=== PATIENT | female | born 1980 | race Caucasian/White ===

== ENCOUNTER 2019-05-03 22:40 | Emergency (ER) | payer OTHER ==
[~2019-05-03] VITALS: Ht 177.8 cm; Wt 74.8 kg
[2019-05-03 22:42] VITALS: Ht 177.8 cm; Wt 74.8 kg
[2019-05-03 23:59] VITALS: BP 114/44
== END 2019-05-03 23:59 | disposition home or self-care (01) ==
LOC: ED 22:40
DX: S93.402A Sprain of unspecified ligament of left ankle, initial encounter (principal); W50.0XXA Accidental hit or strike by another person, initial encounter; Y93.68 Activity, volleyball (beach) (court); Y92.89 Other specified places as the place of occurrence of the external cause; Y99.8 Other external cause status